=== PATIENT | male | born 1980 | race Caucasian/White ===

== ENCOUNTER 2020-05-15 10:27 | Emergency (ER) | payer OTHER ==
[2020-05-15 11:20] LABS: HEMOGLOBIN 13.2 gm/dl (14.0-17.5); RED BLOOD COUNT 3.79 M/UL (4.20-5.50); WHITE BLOOD COUNT 9.8 K/UL (4.5-11.0)
[2020-05-15 11:50] LABS: BUN/CREATININE RATIO 6 (0-10)
[2020-05-15 13:09] LABS: BODY FLUID SOURCE ASCITES; RBC (AUTOMATED) 400 10^6; WBC (AUTOMATED) 514 10^3
[2020-05-15 13:10] LABS: MONONUCLEAR CELLS 92.6 %; POLYMORPHONUCLEAR 7.4 %
[2020-05-15] MEDS ORDERED: FUROSEMIDE40 MG PO (14:52)
[2020-05-15] MEDS ORDERED: SPIRONOLACTONE100 MG PO (14:52)
== END 2020-05-15 15:05 | disposition home or self-care (01) ==
LOC: ER1 10:27
PROVIDERS: Family Medicine
DX: K72.90 Hepatic failure, unspecified without coma (principal); I10 Essential (primary) hypertension; F17.200 Nicotine dependence, unspecified, uncomplicated; Z79.899 Other long term (current) drug therapy; Z98.890 Other specified postprocedural states
CPT/HCPCS: 80053; 81001; 83690; 85025; 85610; 87070; 87205; 89051; 96374; 99283; P9045